=== PATIENT | female | born 1995 ===

== ENCOUNTER 2024-05-28 09:37 | Emergency (ER) | payer OTHER | END 2024-05-28 10:16 | disposition home or self-care (01) | LOC: JP.ED 09:37 | DX: S61.012D Laceration without foreign body of left thumb without damage to nail, subsequent encounter (principal); L08.9 Local infection of the skin and subcutaneous tissue, unspecified; W23.1XXD Caught, crushed, jammed, or pinched between stationary objects, subsequent encounter | CPT/HCPCS: 87070; 87077; 87186; 87205; 99283; 99284 ==